=== PATIENT | male | born 1985 | race African-American/Black ===

== ENCOUNTER 2016-11-11 13:33 | Emergency (ER) | payer MEDICAID ==
[~2016-11-11] VITALS: Ht 182.9 cm; Wt 115.2 kg
[~2016-11-11 13:33] MED LIST: AMLODIPINE BESY10 MG ORAL; ANUSOL-HC25 MG RECTAL; AZITHROMYCIN250 MG ORAL; COLACE100 MG ORAL; CYCLOBENZAPRINE10 MG ORAL; IBUPROFEN600 MG ORAL; LEXAPRO10 MG PO; LEXAPRO20 MG ORAL; LISINOPRIL20 MG ORAL; MECLIZINE HCL25 MG ORAL; MEDROL DOSEPAK4 MG ORAL; MEDROL4 MG ORAL; NAPROSYN500 M1 ORAL; NORCO 5-325 TA1 EACH ORAL; NORVASC5 MG PO; PENICILLIN V P500 MG ORAL; PRILOSEC20 MG ORAL; PROMETHAZINE-D118 ML ORAL; RANITIDINE HCL150 MG ORAL; TRAMADOL HCL50 MG ORAL; VICODIN 5-5001 EACH PO; ZESTRIL20 MG PO; ZOFRAN ODT4 MG ORAL
--- NOTE | 2016-11-11 14:24 | Emergency Room Report ---
History of Present Illness General Chief Complaint: Sore Throat Source: Patient Present Illness HPI 31-year-old male presents emergency department complaining of swelling and pain in the throat since last night with difficulty talking patient denies difficulty breathing. Patient denies fevers chills recent upper respiratory illness, nasal congestion, headache, cough or purulent sputum. Patient states that he took 600 mg Motrin this a.m. which provided no relief. Patient denies recent travel or ill contacts. he denies wheezing rash or swelling of the lips or tongue. Denies CP, Palpitations, LOC, AMS, dizziness, Changes in Vision, Sensation, paresthesias, or a sudden severe headache. Allergies: Coded Allergies: No Known Allergies (Unverified , 06/28/12) Patient History Past Medical History: see triage record Past Surgical History: none Pertinent Family History: none Immunizations: UTD Reviewed Nursing Documentation: PMH: Agreed, PSxH: Agreed Nursing Documentation-PMH Hx Cardiac Problems: No - brain surgery , anxiety Hx Hypertension: Yes Hx Asthma: Yes Hx Cancer: No Hx Gastrointestinal Problems: No Hx Neurological Problems: No Review of Systems All Other Systems: negative except mentioned in HPI Physical Exam Vital Signs Date Time Temp Pulse Resp B/P Pulse Ox O2 Delivery O2 Flow Rate FiO2 11/11/16 13:51 98.1 79 15 138/88 98 Room Air Sp02 EP Interpretation: reviewed, normal General Appearance: no apparent distress, alert, GCS 15, non-toxic Head: normocephalic, atraumatic Eyes: bilateral eye PERRL, bilateral eye normal inspection ENT: hearing grossly normal, normal pharynx, no angioedema, normal voice, TMs + canals normal, uvula midline - uvular edema noted, no purulence seen, no exudate, hanging midline. Neck: full range of motion, no meningismus, no bony tend, supple/symm/no masses Respiratory: chest non-tender, lungs clear, normal breath sounds, speaking full sentences Cardiovascular #1: regular rate, rhythm, no edema Musculoskeletal: back normal, gait/station normal, normal range of motion, non- tender, no calf tenderness Neurologic: alert, oriented x3, responsive, motor strength/tone normal, sensory intact, speech normal - muffled voice. Psychiatric: judgement/insight normal, memory normal, mood/affect normal, no suicidal/homicidal ideation Skin: normal color, no rash, warm/dry, well hydrated Lymphatic: no adenopathy Medical Decision Making PA Attestation Dr. cheng is my supervising Physician whom patient management has been discussed with. Diagnostic Impression: Primary Impression: Uvular edema ER Course Pt. presents to the ED c/o : sore throat, tonsillar swelling, and nasal congestion x 2 days Ddx considered but are not limited to: pharyngitis, strep, GERMAN TEACHER, ludwigs angina, URI, Uvular edema, uvulitis Vital signs: are WNL, pt. is afebrile H&PE are most consistent with: uvular edema no indication of infection or presumed strep. no exudates, no fevers. pt. has a patent airway. ORDERS: None required at this time as the diagnosis is clinical ED INTERVENTIONS: -8MG Decadron IM -60mg Toradol IM DISCHARGE: At this time pt. is stable for d/c to home. Will provide printed patient care instructions, and any necessary prescriptions. Care plan and follow up instructions have been discussed with the patient prior to discharge. Last Vital Signs Date Time Temp Pulse Resp B/P Pulse Ox O2 Delivery O2 Flow Rate FiO2 11/11/16 13:51 98.1 79 15 138/88 98 Room Air Disposition: HOME, SELF-CARE Condition: Stable Scripts Acetaminophen* (TYLENOL EXTRA STRENGTH*) 500 Mg Tablet 500 MG ORAL Q6H, #20 TAB 0 Refills Prov: Alondra Oglesby 11/11/16 Ibuprofen* (MOTRIN*) 600 Mg Tablet 600 MG ORAL THREE TIMES A DAY, #30 TAB 0 Refills Prov: Alondra Oglesby 11/11/16 Patient Instructions: Uvulitis Additional Instructions: Take medications as directed. Follow up with PCP in 3-5 days Return sooner to ED if new symptoms occur, or current symptoms become worse. - Please note that this Emergency Department Report was dictated using [employer] processor technology software, occasionally this can lead to erroneous entry secondary to interpretation by the dictation equipment. Alondra Oglesby Nov 11, 2016 14:24
[2016-11-11] MEDS ORDERED: Ketorolac 60mg Inj IM ONE (14:30)
[2016-11-11] MEDS ORDERED: IBUPROFEN600 MG ORAL (14:31)
[2016-11-11] MEDS ORDERED: TYLENOL EXTRA500 MG ORAL (14:51)
[2016-11-11 15:04] VITALS: BP 134/86
[2016-11-11 15:05] VITALS: BP 138/88
== END 2016-11-11 15:06 | disposition home or self-care (01) ==
LOC: EMR 14:30
DX: R60.9 Edema, unspecified (principal); I10 Essential (primary) hypertension; J45.909 Unspecified asthma, uncomplicated
CPT/HCPCS: 96372; 99284

== ENCOUNTER 2016-12-15 21:23 | Emergency (ER) | payer MEDICAID ==
[~2016-12-15] VITALS: Ht 180.3 cm; Wt 158.8 kg
[~2016-12-15 21:23] MED LIST changes: +TYLENOL EXTRA500 MG ORAL
[2016-12-15 21:36] VITALS: BP 141/93
--- NOTE | 2016-12-15 21:41 | Emergency Room Report ---
History of Present Illness General Chief Complaint: Abdominal Pain Source: Patient Present Illness HPI Patient is a 31-year-old male presented for increased abdominal pain vomiting. Patient reportedly had a left-sided upper abdominal pain which was intermittent in nature. This is also some vomiting. Patient denied hematemesis or bloody stools. He reported having some increased constipation. Patient stated pain is severe nature intermittently. He denied prior abdominal surgeries. He reported having prior history of hypertension. Allergies: Coded Allergies: No Known Allergies (Unverified , 06/28/12) Patient History Past Medical History: see triage record Reviewed Nursing Documentation: PMH: Agreed, PSxH: Agreed Nursing Documentation-PMH Past Medical History: No History, Except For Hx Cardiac Problems: No - brain surgery , anxiety Hx Hypertension: Yes Hx Asthma: Yes Hx Cancer: No Hx Gastrointestinal Problems: No Hx Neurological Problems: No Review of Systems All Other Systems: negative except mentioned in HPI Physical Exam Vital Signs Date Time Temp Pulse Resp B/P Pulse Ox O2 Delivery O2 Flow Rate FiO2 12/15/16 21:27 98.4 93 16 141/93 98 Room Air Sp02 EP Interpretation: reviewed, normal General Appearance: normal inspection, well appearing, no apparent distress, alert, GCS 15, obese Head: atraumatic ENT: normal ENT inspection, hearing grossly normal, normal voice Neck: normal inspection, full range of motion, supple, no bony tend Respiratory: normal inspection, lungs clear, normal breath sounds, no respiratory distress, no retraction, no wheezing Cardiovascular #1: regular rate, rhythm, no edema Gastrointestinal: soft, no guarding, no hernia, tenderness - left upper quadrant tenderness Genitourinary: no CVA tenderness Musculoskeletal: normal inspection, back normal, normal range of motion Neurologic: normal inspection, alert, responsive, speech normal Psychiatric: normal inspection, judgement/insight normal, mood/affect normal Skin: normal inspection, normal color, no rash Medical Decision Making Diagnostic Impression: Primary Impression: Intractable abdominal pain ER Course Patient presented for abdominal pain. Differential diagnoses included ischemic bowel, appendicitis, perforated viscus, abdominal aortic aneurysm, inferior myocardial infarction, viral gastroenteritis Because of complexity of patient's case laboratory testing imaging studies were ordered.The patient was noted to have continued pain after Maalox. CT imaging. To perform was reviewed and was noted to have some inflammation of the pancreas. Laboratory testing showed normal white blood count as well as elevated alkaline phosphatase level Ultrasound of the abdomen showed some evidence of pancreatic inflammation. The patient was discussed with Dr. Reaves who accepted patient as a transfer. Labs Test 12/15/16 22:06 12/15/16 22:58 Urine Color Pale yellow Urine Appearance Clear Urine pH 6 (4.5-8.0) Urine Specific [place] 1.015 (1.005-1.035) Urine Protein Negative (NEGATIVE) Urine Glucose (UA) Negative (NEGATIVE) Urine Ketones Negative (NEGATIVE) Urine Occult Blood Negative (NEGATIVE) Urine Nitrite Negative (NEGATIVE) Urine Bilirubin Negative (NEGATIVE) Urine Urobilinogen Normal MG/DL (0.0-1.0) Urine Leukocyte Esterase Negative (NEGATIVE) Sodium Level 140 mEQ/L (135-145) Potassium Level 3.8 mEQ/L (3.4-4.9) Chloride Level 97 mEQ/L (98-107) Carbon Dioxide Level 26 mEQ/L (20-30) Anion Gap 17 (5-15) Blood Urea Nitrogen 14 mg/dL (7-23) Creatinine 1.0 mg/dL (0.7-1.2) Estimat Glomerular Filtration Rate > 60 mL/min (>60) Glucose Level 95 mg/dL (74-106) Calcium Level 9.4 mg/dL (8.6-10.2) Total Bilirubin 0.3 mg/dL (0.0-1.2) Aspartate Amino Transf (AST/SGOT) 34 U/L (5-40) Alanine Aminotransferase (ALT/SGPT) 33 U/L (3-41) Alkaline Phosphatase 191 U/L (40-129) Troponin I < 0.30 ng/mL (<=0.30) Total Protein 7.4 g/dL (6.6-8.7) Albumin 4.1 g/dL (3.5-5.2) Globulin 3.3 g/dL Albumin/Globulin Ratio 1.2 (1.0-2.7) Lipase 30 U/L (< 60) White Blood Count 6.1 K/UL (4.8-10.8) Red Blood Count 4.05 M/UL (4.70-6.10) Hemoglobin 13.7 G/DL (14.2-18.0) Hematocrit 36.8 % (42.0-52.0) Mean Corpuscular Volume 91 FL (80-99) Mean Corpuscular Hemoglobin 33.7 PG (27.0-31.0) Mean Corpuscular Hemoglobin Concent 37.1 G/DL (32.0-36.0) Red Cell Distribution Width 10.5 % (11.6-14.8) Platelet Count 171 K/UL (150-450) Mean Platelet Volume 8.8 FL (6.5-10.1) Neutrophils (%) (Auto) 50.0 % (45.0-75.0) Lymphocytes (%) (Auto) 39.7 % (20.0-45.0) Monocytes (%) (Auto) 5.7 % (1.0-10.0) Eosinophils (%) (Auto) 3.1 % (0.0-3.0) Basophils (%) (Auto) 1.5 % (0.0-2.0) Last Vital Signs Date Time Temp Pulse Resp B/P Pulse Ox O2 Delivery O2 Flow Rate FiO2 12/15/16 21:36 98.4 88 16 141/93 98 Room Air Status: unchanged Disposition: XFER SHT-TRM HOSP Condition: Serious Hilton Rodrigues Dec 15, 2016 21:41
[2016-12-15] MEDS ORDERED: Mylanta II UD 30ml ORAL ONE (21:45)
[2016-12-15 22:21] LABS: APPEARANCE,URINE CLEAR; KETONES,URINE NEGATIVE (NEGATIVE); LEUKOCYTE ESTERASE ,URINE NEGATIVE (NEGATIVE); NITRITE,URINE NEGATIVE (NEGATIVE); PH,URINE 6 (4.5-8.0); PROTEIN,URINE NEGATIVE (NEGATIVE); UROBILINOGEN,URINE NORMAL MG/DL (0.0-1.0)
[2016-12-15 22:37] LABS: TROPONIN I < 0.30 ng/mL (<=0.30)
[2016-12-15 22:39] LABS: ALANINE AMINOTRANSFERASE 33 U/L (3-41); ALBUMIN/GLOBULIN RATIO 1.2 (1.0-2.7); ANION GAP 17 (5-15); ASPARTATE AMINO TRANSFERASE 34 U/L (5-40); CALCIUM 9.4 mg/dL (8.6-10.2); CARBON DIOXIDE 26 mEQ/L (20-30); CHLORIDE 97 mEQ/L (98-107); GLOMERULAR FILTRATION RATE > 60 mL/min (>60); HEMOLYSIS 67; LIPASE 30 U/L (< 60); POTASSIUM 3.8 mEQ/L (3.4-4.9); SODIUM 140 mEQ/L (135-145); TOTAL PROTEIN 7.4 g/dL (6.6-8.7)
[2016-12-15 23:19] LABS: BASOPHILS % (AUTO) 1.5 % (0.0-2.0); EOSINOPHILS % (AUTO) 3.1 % (0.0-3.0); LYMPHOCYTES % (AUTO) 39.7 % (20.0-45.0); MEAN CORPUSCULAR HEMOGLOBIN 33.7 PG (27.0-31.0); MEAN CORPUSCULAR HGB CONC 37.1 G/DL (32.0-36.0); MEAN CORPUSCULAR VOLUME 91 FL (80-99); MEAN PLATELET VOLUME 8.8 FL (6.5-10.1); MONOCYTES % (AUTO) 5.7 % (1.0-10.0); PLATELET COUNT 171 K/UL (150-450); RED BLOOD COUNT 4.05 M/UL (4.70-6.10); RED CELL DISTRIBUTION WIDTH 10.5 % (11.6-14.8); WHITE BLOOD COUNT 6.1 K/UL (4.8-10.8)
[2016-12-15 23:40] VITALS: BP 140/80
[2016-12-16] MEDS ORDERED: Morphine Sulfate 4mg/ml Inj IVP ONE
[2016-12-16 02:03] VITALS: BP 157/90
[2016-12-16 02:13] VITALS: BP 157/90
--- NOTE | 2016-12-18 08:28 | Diagnostic Imaging Report ---
Indication:Abdominal pain Technique: Grayscale and duplex Doppler imaging of the abdomen performed. Comparison: None Findings: The liver, demonstrated part of the pancreas, aorta and IVC, both kidneys, spleen appear unremarkable. The gallbladder is contracted and not evaluated well on this examination. Sonographic Orozco's is negative. Patient is not n.p.o. CBD measures 5 mm. There is no biliary ductal dilatation identified. Doppler evaluation of the main portal vein shows patency. There is no ascites. No hydronephrosis seen. Impression: No acute findings.
--- NOTE | 2016-12-18 08:29 | Cardiology Report ---
APPROVED REPORT EKG Measurement Heart [id number] Normal sinus rhythm Nonspecific T wave abnormality Abnormal ECG
== END 2016-12-16 02:13 | disposition short-term general hospital (02) ==
LOC: EMR 21:55
DX: R10.9 Unspecified abdominal pain (principal); R11.10 Vomiting, unspecified; K59.00 Constipation, unspecified; I10 Essential (primary) hypertension; J45.909 Unspecified asthma, uncomplicated
CPT/HCPCS: 36415; 76700; 80053; 81003; 83690; 84484; 85025; 93005; 96360; 96374; 96375; 99285; J2270; J2405

== ENCOUNTER 2017-03-14 15:27 | Emergency (ER) | payer MEDICAID ==
[~2017-03-14] VITALS: Ht 182.9 cm; Wt 117.0 kg
[2017-03-14 15:52] VITALS: BP 116/80
[2017-03-14] MEDS ORDERED: Norco 7.5mg/325mg tab ORAL ONE (16:30)
--- NOTE | 2017-03-14 16:30 | Emergency Room Report ---
History of Present Illness General Chief Complaint: Pain Source: Patient Present Illness HPI 32-year-old male presents to the emergency department complaining of 10 out of 10 in severity localized right shoulder pain that had acute onset while playing the p.m. male yesterday. Patient denies previous injury. Patient reports pain with any type of movement or palpation. Patient denies numbness or weakness in the extremity. Patient denies erythema, increased temperature palpation, or swelling. Patient denies other attributable trauma or fall. Patient denies fevers, chills or rashes. Denies numbness tingling or loss of sensation or gross motor movements of the extremities, incontinence of bowel or bladder. Denies CP, Palpitations, LOC, AMS, dizziness, Changes in Vision, Sensation, paresthesias, or a sudden severe headache. Allergies: Coded Allergies: No Known Allergies (Unverified , 06/28/12) Patient History Past Medical History: see triage record Past Surgical History: none Pertinent Family History: none Immunizations: UTD Reviewed Nursing Documentation: PMH: Agreed, PSxH: Agreed Nursing Documentation-PMH Hx Cardiac Problems: Yes - "Heart surgery as " Hx Hypertension: Yes Hx Asthma: Yes Hx Cancer: No Hx Gastrointestinal Problems: No Hx Neurological Problems: Yes - "Brain surgery as a " Review of Systems All Other Systems: negative except mentioned in HPI Physical Exam Vital Signs Date Time Temp Pulse Resp B/P (MAP) Pulse Ox O2 Delivery O2 Flow Rate FiO2 03/14/17 15:37 98.8 86 16 116/80 96 Room Air Sp02 EP Interpretation: reviewed, normal General Appearance: alert, GCS 15, non-toxic, mild distress Head: normocephalic, atraumatic Eyes: bilateral eye normal inspection, bilateral eye PERRL ENT: hearing grossly normal, normal voice Neck: full range of motion Respiratory: lungs clear, normal breath sounds, speaking full sentences Cardiovascular #1: regular rate, rhythm, normal capillary refill Cardiovascular #2: 2+ radial (R), 2+ radial (L) Musculoskeletal: back normal, gait/station normal, normal range of motion - WITH PAIN, other - no motor weakness, equal circulation crew leader strength. , tender - moderate TTP to superficial palpation of the anterior and lateral right shoulder, no erythema, no bruising, no obvious deformity Neurologic: alert, oriented x3, responsive, motor strength/tone normal, sensory intact, speech normal Psychiatric: judgement/insight normal, memory normal, mood/affect normal Skin: normal color, no rash, warm/dry, well hydrated Medical Decision Making PA Attestation Dr. Burr is my supervising Physician whom patient management has been discussed with. Diagnostic Impression: Primary Impression: Shoulder pain, right Qualified Codes: M25.511 - Pain in right shoulder ER Course 32-year-old male presents to the emergency department complaining of 10 out of 10 in severity localized right shoulder pain that had acute onset while playing the p.m. male yesterday. Patient denies previous injury. Patient reports pain with any type of movement or palpation. Patient denies numbness or weakness in the extremity. Patient denies erythema, increased temperature palpation, or swelling. Patient denies other attributable trauma or fall. Patient denies fevers, chills or rashes. Denies numbness tingling or loss of sensation or gross motor movements of the extremities, incontinence of bowel or bladder. Denies CP, Palpitations, LOC, AMS, dizziness, Changes in Vision, Sensation, paresthesias, or a sudden severe headache. Ddx considered but are not limited to Fracture, dislocation, contusion, Sprain/ Strain/Spasm , arthritis, septic joint, pseudogout just to name a few Vital signs: are WNL, pt. is afebrile, non-toxic in appearance, mild distress with movement. H&PE are most consistent with musculoskeletal injury will perform imaging to r/ o fractures/dislocations. Most likely rotator cuff injury or shoulder sprain, no evidence of infection, localized inflammatory reaction, or obvious deformity. pt. is NVI, and I do not suspect a circulatory compromise, or clot. ORDERS: - X-ray Right Shoulder 3 views - negative for fx, Dislocation, or significant soft tissue injury, per preliminary read in ED by Dr. Burr - interpretation is scribed by PA. ED INTERVENTIONS: - [place] PO - Toradol IM -- Right arm Sling applied by mold maintenance technician. Pt. remains neurovascularly intact. D/w pt. that if conservative treatment does not improve his symptoms, that he may require MRI imaging and orthopedic consult. d/w pt. to follow up with PCP for these specialty referrals. D/w pt to return to ED with worsening or new symptoms promptly. I do not suspect an emergent condition at this time. with current presentation pt. is stable for close outpatient follow up. D/w pt. to return to ED with worsening or new symptoms. DISCHARGE: At this time pt. is stable for d/c to home. Will provide printed patient care instructions, and any necessary prescriptions. Care plan and follow up instructions have been discussed with the patient prior to discharge. Last Vital Signs Date Time Temp Pulse Resp B/P (MAP) Pulse Ox O2 Delivery O2 Flow Rate FiO2 03/14/17 15:52 98.8 72 16 116/80 96 Room Air Disposition: HOME, SELF-CARE Condition: Stable Referrals: [facility] [place],REFERRING (PCP) Patient Instructions: Shoulder Pain Additional Instructions: Take medications as directed. Follow up with a Primary Care Provider in 3-5 days, even if your symptoms have resolved. May require MRI if symptoms do not improve. --Please review list of primary care clinics, if you do not already have a primary care provider Return sooner to ED if new symptoms occur, or current symptoms become worse. Do not drink alcohol, drive, or operate heavy machinery while taking [ ] as this may cause drowsiness. - Please note that this Emergency Department Report was dictated using [employer] molder technology software, occasionally this can lead to erroneous entry secondary to interpretation by the dictation equipment. Alondra Oglesby Mar 14, 2017 16:30
--- NOTE | 2017-03-14 17:08 | Diagnostic Imaging Report ---
Indication: Pain Findings: 3 views of the right shoulder were obtained. No acute fractures, malalignment, erosions or periostitis are identified. Bone mineralization is within normal limits. Soft tissues are unremarkable. Impression: Negative examination of the shoulder.
[2017-03-14] MEDS ORDERED: Ketorolac 60mg Inj IM ONE (17:15)
[2017-03-14] MEDS ORDERED: TRAMADOL HCL50 MG ORAL (17:16)
[2017-03-14] MEDS ORDERED: NAPROSYN500 M1 ORAL (17:16)
[2017-03-14 17:30] VITALS: BP 139/90
[2017-03-14 17:34] VITALS: BP 139/90
== END 2017-03-14 17:34 | disposition home or self-care (01) ==
LOC: EMR 16:14
DX: M25.511 Pain in right shoulder (principal); I10 Essential (primary) hypertension; J45.909 Unspecified asthma, uncomplicated
CPT/HCPCS: 96372; 99284

== ENCOUNTER 2017-04-25 14:24 | Emergency (ER) | payer MEDICAID ==
[~2017-04-25] VITALS: Ht 182.9 cm; Wt 117.9 kg
[2017-04-25] MEDS ORDERED: IBUPROFEN600 MG ORAL (15:09)
[2017-04-25] MEDS ORDERED: AMOXICILLIN500 MG ORAL (15:09)
[2017-04-25] MEDS ORDERED: Dexamethasone 4mg/ml vial IM ONE (15:15)
[2017-04-25 15:23] VITALS: BP 137/75
--- NOTE | 2017-04-25 22:27 | Emergency Room Report ---
History of Present Illness General Chief Complaint: General Complaint Source: Patient Present Illness [facility] The patient is a 32-year-old male presenting for sore throat which began this morning. He denies any known sick contacts recent travel. Pain is a 5/10 dull ache it does not radiate. He also admits to a dry cough. Pain worse with swallowing. He denies nausea, vomiting, fever, chills, shortness of breath, rash Allergies: Coded Allergies: No Known Allergies (Unverified , 06/28/12) Patient History Past Medical History: see triage record Pertinent Family History: none Reviewed Nursing Documentation: PMH: Agreed, PSxH: Agreed Nursing Documentation-PMH Past Medical History: No History, Except For Hx Cardiac Problems: Yes - "Heart surgery as " Hx Hypertension: Yes Hx Asthma: Yes Hx COPD: No Hx Diabetes: No Hx Cancer: No Hx Gastrointestinal Problems: No Hx Dialysis: No History Of Psychiatric Problem: No Hx Neurological Problems: Yes - "Brain surgery as a " Hx Cerebrovascular Accident: No Hx Seizures: No Review of Systems All Other Systems: negative except mentioned in HPI Physical Exam Vital Signs Date Time Temp Pulse Resp B/P (MAP) Pulse Ox O2 Delivery O2 Flow Rate FiO2 04/25/17 14:37 97.5 72 16 130/99 99 Room Air Sp02 EP Interpretation: reviewed, normal General Appearance: no apparent distress, alert, GCS 15, non-toxic Head: normocephalic, atraumatic Eyes: bilateral eye normal inspection, bilateral eye PERRL ENT: normal voice, uvula midline, pharyngeal erythema, tonsillar exudate, other - uvula is erythematous with exudate Neck: full range of motion, supple/symm/no masses Respiratory: chest non-tender, lungs clear, normal breath sounds, speaking full sentences Cardiovascular #1: regular rate, rhythm, no edema Musculoskeletal: back normal, gait/station normal, normal range of motion, calf tenderness Neurologic: alert, oriented x3, responsive, motor strength/tone normal, sensory intact, speech normal Psychiatric: judgement/insight normal, memory normal, mood/affect normal, no suicidal/homicidal ideation Skin: normal color, no rash, warm/dry, well hydrated Lymphatic: adenopathy Medical Decision Making PA Attestation Dr. Tang is my supervising physician. Patient management was discussed with my supervising physician Diagnostic Impression: Primary Impression: Pharyngitis, acute Qualified Codes: J02.9 - Acute pharyngitis, unspecified ER Course The patient is a 32-year-old male presenting for sore throat Differential diagnosis include but not limited to pharyngitis, sinusitis, AOM, bronchitis, PNA Physical exam: Vitals within normal limits. Afebrile. No apparent distress HEENT exam: There is bilateral tonsillar edema, erythema, and exudate. Uvula midline. Moist mucous membranes. There is bilateral cervical lymphadenopathy. Lungs are clear to auscultation bilaterally Skin is warm and dry. No rash The patient is given antibiotics and steroids in the emergency department The patient will be discharged home with a prescription for amoxicillin and is given ER precautions. Patient will followup with primary care. Last Vital Signs Date Time Temp Pulse Resp B/P (MAP) Pulse Ox O2 Delivery O2 Flow Rate FiO2 04/25/17 15:23 76 20 137/75 99 Room Air 04/25/17 15:23 97.6 Status: improved Disposition: HOME, SELF-CARE Condition: Improved Scripts Amoxicillin* (AMOXIL*) 500 Mg Capsule 500 MG ORAL Q12HR, #20 CAP Prov: KARYN SAPP 04/25/17 Ibuprofen* (MOTRIN*) 600 Mg Tablet 600 MG ORAL Q8H Y for For Pain, #30 TAB 0 Refills Prov: KARYN SAPP 04/25/17 Referrals: [facility],REFERRING (PCP) Patient Instructions: Pharyngitis Additional Instructions: I discussed my findings with the patient. All questions and concerns have been answered. Treatment and medication compliance have been addressed. I advised the patient that they need to follow up with PMD in 3-5 days. Return to ED if pain remains or worsens, cough worsens or remains, you notice blood in your sputum, you notice wheezing, it becomes difficult to breathe, you experience a fever, or if needed for any reason. Patient verbalized understanding of discharge instructions. KRAYN SAPP Apr 25, 2017 22:27
== END 2017-04-25 15:23 | disposition home or self-care (01) ==
LOC: EMR 15:23
DX: J02.9 Acute pharyngitis, unspecified (principal); I10 Essential (primary) hypertension
CPT/HCPCS: 96372; 99284; J1100

== ENCOUNTER 2017-11-03 00:59 | Emergency (ER) | payer MEDICAID ==
[~2017-11-03] VITALS: Ht 182.9 cm; Wt 119.7 kg
[~2017-11-03 00:59] MED LIST changes: +AMOXICILLIN500 MG ORAL
--- NOTE | 2017-11-03 02:04 | Emergency Room Report ---
History of Present Illness General Chief Complaint: Lower Extremity Injury Source: Patient Present Illness HPI Is a 32-year-old male with history of attention. He presents with chief complaint of bilateral feet pain. He said he was rehearsing for play today and when he got home and walked to the kitchen he felt sharp pain to the ball of both feet. To the point that he can't bear weight. Pain is spasm and sharp. 10 out of 10. No trauma. No fever chills but no nausea no vomiting. No repetitive movement. Allergies: Coded Allergies: No Known Allergies (Unverified , 06/28/12) Patient History Past Medical History: see triage record, old chart reviewed, HTN Past Surgical History: none Pertinent Family History: none Social History: Denies: smoking Immunizations: other Reviewed Nursing Documentation: PMH: Agreed; PSxH: Agreed Nursing Documentation-PMH Past Medical History: No History, Except For Hx Cardiac Problems: Yes - "Heart surgery as " Hx Hypertension: Yes Hx Asthma: Yes Hx COPD: No Hx Diabetes: No Hx Cancer: No Hx Gastrointestinal Problems: Yes - IBS Hx Dialysis: No Hx Neurological Problems: Yes - "Brain surgery as a " Hx Cerebrovascular Accident: No Hx Seizures: No Review of Systems Eye: Denies: eye pain, blurred vision ENT: Denies: ear pain, nose congestion, throat swelling Respiratory: Denies: cough, shortness of breath Cardiovascular: Denies: chest pain, palpitations Gastrointestinal: Denies: abdominal pain, diarrhea, nausea, vomiting Musculoskeletal: Reports: joint pain; Denies: back pain Skin: Denies: rash Neurological: Denies: headache, numbness Endocrine: Denies: increased thirst, increased urine Hematologic/Lymphatic: Denies: easy bruising All Other Systems: negative except mentioned in HPI Physical Exam Vital Signs Date Time Temp Pulse Resp B/P (MAP) Pulse Ox O2 Delivery O2 Flow Rate FiO2 11/03/17 01:11 98.2 85 18 148/99 95 Room Air 98.2 vitals with high blood pressure Sp02 EP Interpretation: reviewed, normal General Appearance: well appearing, no apparent distress, alert, obese Head: normocephalic, atraumatic Eyes: bilateral eye PERRL, bilateral eye EOMI ENT: hearing grossly normal, normal pharynx Neck: full range of motion, supple, no meningismus Respiratory: chest non-tender, lungs clear, normal breath sounds Cardiovascular #1: regular rate, rhythm, no murmur Gastrointestinal: normal bowel sounds, non tender, no mass, no organomegaly, no bruit, non-distended Musculoskeletal: back normal, normal range of motion, tender - over the ball of both feet. No trauma. No redness. Neurologic: alert, oriented x3 Psychiatric: mood/affect normal Skin: warm/dry Medical Decision Making Diagnostic Impression: Primary Impression: Pain in both feet ER Course Patient with acute pain to bilateral feet over the ball. Maybe plantar fasciitis may be muscle spasm. I see no trauma. No infection. We'll discharge home. Other X-Ray Diagnostic Results Other X-Ray Diagnostic Results #1: X-Ray ordered: right foot x-rays # of Views/Limited Vs Complete: 3 View Indication: Pain EP Interpretation: Yes Interpretation: no dislocation, no soft tissue swelling, no fractures Impression: No acute disease Electronically Signed by: Devin Farr MD Other X-Ray Diagnostic Results #2: X-Ray ordered: Left foot xrays # of Views/Limited Vs Complete: 3 View Indication: Pain EP Interpretation: Yes Interpretation: no dislocation, no soft tissue swelling, no fractures Impression: No acute disease Electronically Signed by: Devin Farr MD Last Vital Signs Date Time Temp Pulse Resp B/P (MAP) Pulse Ox O2 Delivery O2 Flow Rate FiO2 11/03/17 01:11 98.2 85 18 148/99 95 Room Air 98.2 Status: improved Disposition: HOME, SELF-CARE Condition: Stable Scripts Ibuprofen* (MOTRIN*) 600 Mg Tablet 600 MG ORAL THREE TIMES A DAY, #30 TAB 0 Refills Prov: DEVIN FARR M.D. 11/03/17 Cyclobenzaprine Hcl* (FLEXERIL*) 10 Mg Tablet 10 MG ORAL TID PRN for Muscle Spasm, #21 TAB Prov: DEVIN FARR M.D. 11/03/17 Referrals: [facility],REFERRING (PCP) Additional Instructions: Ice pack area. Follow-up your doctor in 7 days. Return of worse. DEVIN FARR M.D. Nov 03, 2017 02:04
[2017-11-03] MEDS ORDERED: CYCLOBENZAPRINE10 MG ORAL (02:07)
[2017-11-03] MEDS ORDERED: IBUPROFEN600 MG ORAL (02:07)
[2017-11-03 02:25] VITALS: BP 148/99
--- NOTE | 2017-11-03 18:44 | Diagnostic Imaging Report ---
Indication: Pain Technique: XRAY Foot Complete R Comparison: No prior right foot radiographs available for comparison. Correlation made to concurrent left foot radiographs. Findings: There is no evidence of acute fracture or dislocation. Anatomic alignment and joint spaces are preserved. No focal soft tissue abnormality is appreciated. No radiopaque foreign body is seen. Impression: No evidence of acute fracture or dislocation.
--- NOTE | 2017-11-03 18:44 | Diagnostic Imaging Report ---
Indication: Pain Technique: XRAY Foot Complete L Comparison: 06/28/2012 Findings: There is no evidence of acute fracture or dislocation. Anatomic alignment and joint spaces are preserved. No focal soft tissue abnormality is appreciated. No radiopaque foreign body is seen. Impression: No evidence of acute fracture or dislocation.
== END 2017-11-03 02:25 | disposition home or self-care (01) ==
LOC: EMR 01:15
DX: M79.672 Pain in left foot (principal); M79.671 Pain in right foot; I10 Essential (primary) hypertension; J45.909 Unspecified asthma, uncomplicated
CPT/HCPCS: 99284

== ENCOUNTER 2018-01-04 09:40 | Emergency (ER) | payer MEDICAID ==
[~2018-01-04] VITALS: Ht 182.9 cm; Wt 122.0 kg
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
[2018-01-04 10:32] VITALS: BP 153/93
[2018-01-04] MEDS ORDERED: ATHLETIC FOOT C30 GM TOPIC (11:40)
[2018-01-04 12:15] VITALS: BP 151/98
[2018-01-04 12:16] VITALS: BP 151/98
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
== END 2018-01-04 12:15 | disposition home or self-care (01) ==
LOC: EMR 10:49
DX: S20.219A Contusion of unspecified front wall of thorax, initial encounter (principal); W51.XXXA Accidental striking against or bumped into by another person, initial encounter; Y92.9 Unspecified place or not applicable; B35.3 Tinea pedis; I10 Essential (primary) hypertension; J45.909 Unspecified asthma, uncomplicated
CPT/HCPCS: 99283

== ENCOUNTER 2018-01-29 16:36 | Emergency (ER) | payer MEDICAID ==
[~2018-01-29] VITALS: Ht 182.9 cm; Wt 120.2 kg
[~2018-01-29 16:36] MED LIST changes: +ATHLETIC FOOT C30 GM TOPIC
[2018-01-29 17:03] VITALS: BP 159/106
[2018-01-29] MEDS ORDERED: Norco 5mg/325mg tab ORAL ONE ×2 (17:15→18:15)
--- NOTE | 2018-01-29 17:44 | Diagnostic Imaging Report ---
Indications: Headache Technique: Spiral acquisitions obtained through the brain. Angled axial and coronal 5 x 5 mm slices were reconstructed. Total dose length product 1439.42 mGycm. CTDI vol(s) 70.38 mGy. Dose reduction achieved using automated exposure control Comparison: 10/02/2013 Findings: Possible small area of encephalomalacia or other cystic focus versus physiologic asymmetry of the lateral ventricle again demonstrated in the region of the right caudate nucleus, unchanged. No evidence of acute intrarenal hemorrhage or edema, mass effect, nor midline shift. Normal malloy-white differentiation. Intact calvarium. Visualized orbits and sinuses are unremarkable. Impression: Findings as noted. Negative for acute intracranial bleed or mass effect The CT scanner at [facility] is accredited by the [employer] and the scans are performed using protocols designed to limit radiation exposure to as low as reasonably achievable to attain images of sufficient resolution adequate for diagnostic evaluation.
[2018-01-29] MEDS ORDERED: Hydrogen Peroxide 473ml Bottle TOPIC ONE ×2 (18:11→18:15)
--- NOTE | 2018-01-29 18:13 | Emergency Room Report ---
History of Present Illness General Chief Complaint: Headache Source: Patient Present Illness HPI 32-year-old male presents with 2-3 days of intermittent left frontal headache with 2 episodes of vomiting yesterday. No associated fever, chills, neck pain or stiffness. No history of chronic headaches, migraines. Patient also complaining of left ear ringing and left ear pain since last night. He intermittently uses Q-tips to clean his ears but denies any recent Q-tip use or severe pain after using Q-tip. Denies throat pain or difficulty swallowing. Denies sick contacts. Took 1 dose of ibuprofen last night with only mild improvement in pain. Allergies: Coded Allergies: No Known Allergies (Unverified , 06/28/12) Patient History Past Medical History: none Past Surgical History: none Pertinent Family History: none Social History: Denies: smoking, alcohol use, drug use Immunizations: UTD Reviewed Nursing Documentation: PMH: Agreed; PSxH: Agreed Nursing Documentation-PMH Past Medical History: No History, Except For Hx Cardiac Problems: Yes - "Heart surgery as " Hx Hypertension: Yes Hx Asthma: Yes Hx COPD: No Hx Diabetes: No Hx Cancer: No Hx Gastrointestinal Problems: Yes - IBS Hx Dialysis: No Hx Neurological Problems: Yes - "Brain surgery as a " Hx Cerebrovascular Accident: No Hx Seizures: No Review of Systems All Other Systems: negative except mentioned in HPI Physical Exam Vital Signs Date Time Temp Pulse Resp B/P (MAP) Pulse Ox O2 Delivery O2 Flow Rate FiO2 01/29/18 16:52 98.5 81 18 159/106 98 Room Air 98.4 Sp02 EP Interpretation: reviewed, normal General Appearance: normal inspection, well appearing, no apparent distress, alert, GCS 15, non-toxic Head: normocephalic, atraumatic Eyes: bilateral eye PERRL, bilateral eye EOMI ENT: normal ENT inspection, hearing grossly normal, normal pharynx, no angioedema, normal voice, uvula midline, moist mucus membranes, other - Left TM with erythema in canal. No TM erythema. Large piece of wax removed with irrigation Neck: normal inspection, full range of motion, supple, thyroid normal, no meningismus, no bony tend Respiratory: normal inspection, lungs clear, normal breath sounds, no rhonchi, no respiratory distress, no retraction, no accessory muscle use, no wheezing, speaking full sentences Cardiovascular #1: regular rate, rhythm, no edema, no JVD, normal capillary refill Gastrointestinal: normal inspection, normal bowel sounds, non tender, soft, no mass, no peritonitis, non-distended, no guarding, no hernia, no pulsatile mass Genitourinary: no CVA tenderness Musculoskeletal: normal inspection, back normal, normal range of motion, no calf tenderness, pelvis stable, Efra's Sign negative Neurologic: normal inspection, alert, oriented x3, responsive, supervisor dental laboratory III-XII nml as tested, motor strength/tone normal, cerebellar normal, normal gait, speech normal Psychiatric: normal inspection, judgement/insight normal, mood/affect normal, no suicidal/homicidal ideation, no delusions Skin: normal inspection, normal color, no rash Lymphatic: normal inspection, no adenopathy Medical Decision Making Diagnostic Impression: Primary Impression: Headache Qualified Codes: R51 - Headache Additional Impressions: Left ear pain Left otitis media Qualified Codes: H66.92 - Otitis media, unspecified, left ear ER Course VSS, afebrile Patient is well-appearing, nonseptic appearing patient has a low suspicion for meningitis or for acute or other serious bacterial or surgical process that would require Additional laboratory analysis at this time Patient texting on phone sitting upright in stretcher. He is very pleasant, calm, cooperative and interactive. CT head shows possible small area of encephalomalacia or physiologic asymmetry of lateral ventricle "again demonstrated" based on review of prior CT head Patient states he has had MRI but not sure if it was MRI of head He is not sure if he seen neurologist We'll treat for otitis with antibiotics Advised to not use Q-tips in the future I contacted Dr. Ramsey, [facility] to arrange outpatient MRI DC home Last Vital Signs Date Time Temp Pulse Resp B/P (MAP) Pulse Ox O2 Delivery O2 Flow Rate FiO2 01/29/18 17:16 98.5 01/29/18 17:03 78 18 159/106 100 Room Air Status: improved Disposition: HOME, SELF-CARE AURELIA COWART M.D. Jan 29, 2018 18:13
[2018-01-29] MEDS ORDERED: IBUPROFEN600 MG ORAL (18:50)
[2018-01-29] MEDS ORDERED: AUGMENTIN 875-1 EAC1 ORAL (18:50)
[2018-01-29 18:55] VITALS: BP 148/98
== END 2018-01-29 18:55 | disposition home or self-care (01) ==
LOC: EMR 17:25
DX: R51 Headache (principal); H66.92 Otitis media, unspecified, left ear; I10 Essential (primary) hypertension; J45.909 Unspecified asthma, uncomplicated; K58.9 Irritable bowel syndrome, unspecified
CPT/HCPCS: 70450; 99284

== ENCOUNTER 2018-07-02 07:29 | Emergency (ER) | payer MEDICAID ==
[~2018-07-02] VITALS: Ht 182.9 cm; Wt 120.7 kg
[~2018-07-02 07:29] MED LIST changes: +AUGMENTIN 875-1 EAC1 ORAL
[2018-07-02] MEDS ORDERED: Albuterol ud Inhalation HHN ONE (08:00)
--- NOTE | 2018-07-02 08:58 | Emergency Room Report ---
History of Present Illness General Chief Complaint: Flu Like Symptoms Source: Patient Present Illness HPI This patient states he's had 2 weeks of cough and congestion. He states his symptoms are worsening and not improving. He does have a history of asthma and states he has been using his inhaler. However, he continues to have cough and shortness of breath. He also has had intermittent fever. He denies chest pain or abdominal pain. He states that he has had thick green sputum production. He states that he did not get the flu shot this season. He has no other complaints. Allergies: Coded Allergies: No Known Allergies (Unverified , 06/28/12) Patient History Past Medical History: see triage record, HTN, asthma Past Surgical History: other - Hx of "heart" and "brain" surgery as a , Autism Social History: Denies: smoking, alcohol use, drug use Reviewed Nursing Documentation: PMH: Agreed; PSxH: Agreed Nursing Documentation-PMH Past Medical History: No History, Except For Hx Cardiac Problems: Yes - "Heart surgery as " Hx Hypertension: Yes Hx Asthma: Yes Hx COPD: No Hx Diabetes: No Hx Cancer: No Hx Gastrointestinal Problems: Yes - IBS Hx Dialysis: No Hx Neurological Problems: Yes - "Brain surgery as a " Hx Cerebrovascular Accident: No Hx Seizures: No Review of Systems All Other Systems: negative except mentioned in HPI Physical Exam Vital Signs Date Time Temp Pulse Resp B/P (MAP) Pulse Ox O2 Delivery O2 Flow Rate FiO2 07/02/18 07:50 98.8 90 18 154/100 98 Room Air Sp02 EP Interpretation: reviewed, normal General Appearance: no apparent distress, alert, GCS 15, non-toxic Head: normocephalic, atraumatic Eyes: bilateral eye normal inspection, bilateral eye PERRL ENT: hearing grossly normal, normal pharynx, no angioedema, normal voice Neck: full range of motion, supple/symm/no masses Respiratory: chest non-tender, no respiratory distress, no retraction, no accessory muscle use, rhonchi, speaking full sentences, wheezing Cardiovascular #1: regular rate, rhythm, no edema Gastrointestinal: normal bowel sounds, non tender, soft, non-distended, no guarding, no rebound Rectal: deferred Musculoskeletal: back normal, gait/station normal, normal range of motion, non- tender Neurologic: alert, oriented x3, responsive, motor strength/tone normal, sensory intact, speech normal Psychiatric: judgement/insight normal, memory normal, mood/affect normal, no suicidal/homicidal ideation Skin: normal color, no rash, warm/dry, well hydrated Medical Decision Making Diagnostic Impression: Primary Impression: Asthma exacerbation Additional Impression: Acute bronchitis ER Course This patient has a clinical presentation consistent with asthma exacerbation. Patient has a history of asthma and has wheezing and rhonchi on physical exam. The patient was given albuterol nebulizer treatments. The patient was also given prednisone orally. The patient had significant improvement in subjective shortness of breath. The patient's lung exam improved significantly. I will also treat the patient with a course of antibiotics as this has been shown to improve the course of an asthma exacerbation. The patient was given close return precautions and followup instructions. Chest X-Ray Diagnostic Results Chest X-Ray Diagnostic Results : Chest X-Ray Ordered: Yes # of Views/Limited/Complete: 1 View Indication: Other - cough EP Interpretation: Yes Interpretation: no consolidation, no effusion, no pneumothorax, no acute cardiopulmonary disease Impression: No acute disease Electronically Signed by: Elsie Gifford DO Last Vital Signs Date Time Temp Pulse Resp B/P (MAP) Pulse Ox O2 Delivery O2 Flow Rate FiO2 07/02/18 08:00 90 18 Room Air 07/02/18 07:50 98.8 154/100 98 Status: improved Disposition: HOME, SELF-CARE Condition: Improved Referrals: NON PHYSICIAN (PCP) Elsie Gifford DO Jul 02, 2018 08:58
[2018-07-02] MEDS ORDERED: ZITHROMAX250 MG ORAL (09:00)
[2018-07-02] MEDS ORDERED: PREDNISONE20 MG ORAL (09:00)
[2018-07-02 09:10] VITALS: BP 149/98
--- NOTE | 2018-07-02 09:30 | Diagnostic Imaging Report ---
Indication: Cough, history of asthma, shortness of breath Technique: One view of the chest Comparison: 05/19/2015 Findings: Lungs and pleural spaces are clear. Heart size is normal. Ductus clip again demonstrated. No significant change Impression: No acute process
== END 2018-07-02 09:10 | disposition home or self-care (01) ==
LOC: EMR 08:15
DX: J45.901 Unspecified asthma with (acute) exacerbation (principal); J20.9 Acute bronchitis, unspecified; I10 Essential (primary) hypertension
CPT/HCPCS: 71045; 86710; 94640; 99284; J7512

== ENCOUNTER 2018-09-25 22:05 | Emergency (ER) | payer MEDICAID ==
[~2018-09-25] VITALS: Ht 182.9 cm; Wt 120.2 kg
[~2018-09-25 22:05] MED LIST changes: +PREDNISONE20 MG ORAL; +ZITHROMAX250 MG ORAL
[2018-09-25] MEDS ORDERED: Aspirin Baby 81mg ORAL ONE (22:45)
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
[2018-09-25] MEDS ORDERED: Albuterol/Ipratropium 3ml neb HHN ONE (23:15)
--- NOTE | 2018-09-25 23:36 | Emergency Room Report ---
History of Present Illness General Chief Complaint: Chest Pain Source: Patient Present Illness HPI Is a 31-year-old male presented for intermittent chest tightness. Patient had onset of symptoms earlier in the day. Patient had prior history of asthma. As well as hypertension. Recently started a new antihypertensive.The onset of symptoms at rest. He denies any increased cough. He denies any increased difficulty breathing. He had prior history of hypertension is followed by Dr. Ramsey. Allergies: Coded Allergies: No Known Allergies (Unverified , 06/28/12) Patient History Reviewed Nursing Documentation: PMH: Agreed; PSxH: Agreed Nursing Documentation-PMH Past Medical History: No History, Except For Hx Cardiac Problems: Yes - "Heart surgery as " Hx Hypertension: Yes Hx Asthma: Yes Hx COPD: No Hx Diabetes: No Hx Cancer: No Hx Gastrointestinal Problems: Yes - IBS Hx Dialysis: No Hx Neurological Problems: Yes - "Brain surgery as a " Hx Cerebrovascular Accident: No Hx Seizures: No Review of Systems All Other Systems: negative except mentioned in HPI Physical Exam Vital Signs Date Time Temp Pulse Resp B/P (MAP) Pulse Ox O2 Delivery O2 Flow Rate FiO2 09/25/18 22:18 98.2 92 18 147/97 97 Room Air 09/25/18 23:34 21 Sp02 EP Interpretation: reviewed, normal General Appearance: normal inspection, well appearing, no apparent distress, alert, GCS 15, non-toxic Head: atraumatic ENT: normal ENT inspection, hearing grossly normal, normal voice Neck: normal inspection, full range of motion, supple, no bony tend Respiratory: normal inspection, lungs clear, normal breath sounds, no respiratory distress, no retraction, no wheezing Cardiovascular #1: regular rate, rhythm, no edema Gastrointestinal: normal inspection, normal bowel sounds, non tender, soft, no guarding, no hernia Genitourinary: no CVA tenderness Musculoskeletal: normal inspection, back normal, normal range of motion Neurologic: normal inspection, alert, responsive, speech normal Psychiatric: normal inspection, judgement/insight normal, mood/affect normal Skin: normal inspection, normal color, no rash Medical Decision Making Diagnostic Impression: Primary Impression: Asthma exacerbation ER Course Patient presented for shortness of breath. Differential diagnosis includes is not limited to asthma exacerbation, influenza, pneumonia, pulmonary embolism, myocardial infarction among others. EKG interpreted by me showed normal sinus rhythm without acute ST or T wave changes. Chest x-ray 1 view read by radiology showed no evidence of pleural effusion, pneumothorax or infiltrate. Patient was noted to have what appears to be an asthma exacerbation. Patient was given steroids as well as breathing treatments with improvement. The patient is advised to follow up with primary care doctor in 1-2 days. Patient is advised to return if any worsening condition or if any changes in status that are concerning. This report is dictated with [employer] bulk picker software which may occasionally lead to discrepancies related to use of this software. EKG Diagnostic Results Rate: normal Rhythm: NSR ST Segments: no acute changes Last Vital Signs Date Time Temp Pulse Resp B/P (MAP) Pulse Ox O2 Delivery O2 Flow Rate FiO2 09/25/18 23:34 67 14 Room Air 21 09/25/18 22:18 98.2 147/97 97 Status: improved Disposition: HOME, SELF-CARE Condition: Stable Hilton Rodrigues MD Sep 25, 2018 23:36
[2018-09-25 23:44] LABS: BASOPHILS % (AUTO) 1.5 % (0.0-2.0); HEMATOCRIT 43.2 % (42.0-52.0); LYMPHOCYTES % (AUTO) 34.6 % (20.0-45.0); MEAN CORPUSCULAR VOLUME 90 FL (80-99); MONOCYTES % (AUTO) 5.5 % (1.0-10.0); NEUTROPHILS % (AUTO) 54.4 % (45.0-75.0); PLATELET COUNT 208 K/UL (150-450); RED BLOOD COUNT 4.78 M/UL (4.70-6.10); RED CELL DISTRIBUTION WIDTH 10.9 % (11.6-14.8); WHITE BLOOD COUNT 6.2 K/UL (4.8-10.8)
[2018-09-25 23:57] LABS: ANION GAP 9 mmol/L (5-15); BLOOD UREA NITROGEN 8 mg/dL (7-18); CALCIUM 9.2 MG/DL (8.5-10.1); CARBON DIOXIDE 30 MMOL/L (21-32); CHLORIDE 103 MMOL/L (98-107); CREATININE 0.9 MG/DL (0.55-1.30); POTASSIUM 3.4 MMOL/L (3.5-5.1); SODIUM 142 MMOL/L (136-145)
[2018-09-26] VITALS: BP 133/83
[2018-09-26 00:11] LABS: ALANINE AMINOTRANSFERASE 48 U/L (12-78); ALBUMIN 3.8 G/DL (3.4-5.0); ALKALINE PHOSPHATASE 146 U/L (46-116); ASPARTATE AMINO TRANSFERASE 43 U/L (15-37); BILIRUBIN,TOTAL 0.7 MG/DL (0.2-1.0); CKMB 1.8 NG/ML (0.0-3.6); CREATINE KINASE 299 U/L (26-308)
[2018-09-26 03:40] VITALS: BP 133/83
--- NOTE | 2018-09-26 03:40 | NUR ---
ED Nurse Note: PREVIOUS CHARTING ON PAPER CHART, COMPUTER ON DOWNTIME, PT IS BEING D/C TO HOME, AWAKE, ALERT AND ORIENTED X 4, AMBULATORY WITH STEADY GAIT, CHEST PAIN AT 2/10, IV SITE AND ARMBAND REMOVED WITHOUT COMPLICATIONS, PT WITH MOTHER TO DRIVE, BOTH PARTIES GIVEN F/U INFO, AFTER CARE INSTRUCTIONS AND PRESCRIPTION, GIVEN BY AIRAM NUR WHOM DISCHARGED PT.
--- NOTE | 2018-09-27 09:32 | Diagnostic Imaging Report ---
Indication: Shortness of breath Technique: One view of the chest Comparison: none Findings: Lungs and pleural spaces are clear. Surgical clip, presumably a ductus clip, again noted. The heart size is normal Impression: No acute process
== END 2018-09-26 03:40 | disposition home or self-care (01) ==
LOC: EMR 22:59
DX: R07.89 Other chest pain (principal); I10 Essential (primary) hypertension; J45.901 Unspecified asthma with (acute) exacerbation; K58.9 Irritable bowel syndrome, unspecified
CPT/HCPCS: 36415; 71045; 80053; 80307; 82550; 82553; 83690; 83880; 84484; 85025; 85610; 85730; 93005; 94640; 94664; 99284; J7620

== ENCOUNTER 2018-11-26 07:25 | Emergency (ER) | payer MEDICAID ==
[~2018-11-26] VITALS: Ht 182.9 cm; Wt 113.4 kg
[2018-11-26] MEDS ORDERED: LEXAPRO20 MG ORAL (07:46)
[2018-11-26 08:00] VITALS: BP 158/96
--- NOTE | 2018-11-26 08:03 | NUR ---
ED Nurse Note: pt presents from home c/o left lat abd pain since yest with nausea. last bm today. no vomiting. pt relates unable to boid at this time. md toro of pt.
[2018-11-26] MEDS ORDERED: Ketorolac 30mg Inj IV ONE (08:15)
--- NOTE | 2018-11-26 08:30 | NUR ---
ED Nurse Note: tolerates iv/labs well aware to obtain urine sample. urinal given. pt stes immediate relief of symptoms after meds given
--- NOTE | 2018-11-26 08:40 | Emergency Room Report ---
History of Present Illness General Chief Complaint: Abdominal Pain Source: Patient Present Illness HPI Patient presents emergency department today complaint left upper quadrant abdominal pain. Patient states that he has had left upper quadrant abdominal pain for the last couple of days. He had a similar episode years ago which resolved he does not remember what happened then and he is uncertain if this is similar. He complains of nausea but no vomiting. States he does feel constipated but he had a bowel movement yesterday. No other complaints are noted. Symptoms noted to moderate to severe. Patient denies any dysuria urinary frequency. No other modifying factors. No other associated signs and symptoms. No other complaints were noted. Allergies: Coded Allergies: No Known Allergies (Unverified , 11/26/18) Patient History Past Medical History: none Past Surgical History: none Pertinent Family History: none Social History: Denies: smoking, alcohol use, drug use Reviewed Nursing Documentation: PMH: Agreed; PSxH: Agreed Nursing Documentation-PMH Hx Cardiac Problems: Yes - "Heart surgery as " Hx Hypertension: Yes Hx Asthma: Yes Hx COPD: No Hx Diabetes: No Hx Cancer: No Hx Gastrointestinal Problems: Yes - IBS Hx Dialysis: No Hx Neurological Problems: Yes - "Brain surgery as a " Hx Cerebrovascular Accident: No Hx Seizures: No Review of Systems All Other Systems: negative except mentioned in HPI Physical Exam Vital Signs Date Time Temp Pulse Resp B/P (MAP) Pulse Ox O2 Delivery O2 Flow Rate FiO2 11/26/18 07:42 98.8 74 16 97 Room Air 11/26/18 08:00 158/96 Sp02 EP Interpretation: reviewed, normal General Appearance: normal inspection, well appearing, no apparent distress, alert Head: atraumatic Eyes: bilateral eye normal inspection ENT: normal ENT inspection, hearing grossly normal, normal voice Neck: normal inspection, full range of motion, supple, no bony tend Respiratory: normal inspection, lungs clear, normal breath sounds, no respiratory distress, no retraction, no wheezing Cardiovascular #1: regular rate, rhythm, no edema Gastrointestinal: normal inspection, normal bowel sounds, soft, no guarding, no hernia, tenderness - Left upper quadrant Genitourinary: no CVA tenderness Musculoskeletal: normal inspection, back normal, normal range of motion Neurologic: normal inspection, alert, responsive, speech normal Psychiatric: normal inspection, judgement/insight normal, mood/affect normal Skin: normal inspection, normal color, no rash Medical Decision Making Diagnostic Impression: Primary Impression: Kidney stone on left side Additional Impression: Abdominal pain ER Course Patient presents emergency department today complaining of abdominal pain. Differential considerations include colitis, pancreatitis, gastritis, kidney stone, urinary tract infection just to name a few. Given the severity of the patient's presentation I felt this is a highly complex patient. This patient required extensive workup. Patient's laboratory work-up was not impressive. However given severe pain CT scan was obtained. CT scan shows evidence of 4 mm kidney stone in the left side. Patient was given pain medications with significant improvement. Given patient's feeling better I feel the patient can be discharged home. Patient was given a prescription for Motrin Zenia and Flomax. Patient is advised to follow up with primary doctor in 2-3 days and return the emergency room for any worsening symptoms and as needed. Advised to follow-up with urology. Labs Test 11/26/18 08:25 11/26/18 09:10 White Blood Count 6.3 K/UL (4.8-10.8) Red Blood Count 4.44 M/UL (4.70-6.10) Hemoglobin 14.0 G/DL (14.2-18.0) Hematocrit 39.8 % (42.0-52.0) Mean Corpuscular Volume 90 FL (80-99) Mean Corpuscular Hemoglobin 31.6 PG (27.0-31.0) Mean Corpuscular Hemoglobin Concent 35.1 G/DL (32.0-36.0) Red Cell Distribution Width 10.8 % (11.6-14.8) Platelet Count 200 K/UL (150-450) Mean Platelet Volume 8.9 FL (6.5-10.1) Neutrophils (%) (Auto) 47.7 % (45.0-75.0) Lymphocytes (%) (Auto) 38.7 % (20.0-45.0) Monocytes (%) (Auto) 4.9 % (1.0-10.0) Eosinophils (%) (Auto) 7.0 % (0.0-3.0) Basophils (%) (Auto) 1.7 % (0.0-2.0) Sodium Level 143 MMOL/L (136-145) Potassium Level 3.4 MMOL/L (3.5-5.1) Chloride Level 105 MMOL/L (98-107) Carbon Dioxide Level 28 MMOL/L (21-32) Anion Gap 10 mmol/L (5-15) Blood Urea Nitrogen 11 mg/dL (7-18) Creatinine 1.0 MG/DL (0.55-1.30) Estimat Glomerular Filtration Rate > 60 mL/min (>60) Glucose Level 128 MG/DL (74-106) Calcium Level 8.8 MG/DL (8.5-10.1) Total Bilirubin 0.5 MG/DL (0.2-1.0) Aspartate Amino Transf (AST/SGOT) 32 U/L (15-37) Alanine Aminotransferase (ALT/SGPT) 39 U/L (12-78) Alkaline Phosphatase 179 U/L (46-116) Total Protein 6.8 G/DL (6.4-8.2) Albumin 3.4 G/DL (3.4-5.0) Globulin 3.4 g/dL Albumin/Globulin Ratio 1.0 (1.0-2.7) Lipase 141 U/L (73-393) Urine Color Pale yellow Urine Appearance Clear Urine pH 6.5 (4.5-8.0) Urine Specific [place] 1.010 (1.005-1.035) Urine Protein Negative (NEGATIVE) Urine Glucose (UA) Negative (NEGATIVE) Urine Ketones Negative (NEGATIVE) Urine Blood 3+ (NEGATIVE) Urine Nitrite Negative (NEGATIVE) Urine Bilirubin Negative (NEGATIVE) Urine Urobilinogen Normal MG/DL (0.0-1.0) Urine Leukocyte Esterase Negative (NEGATIVE) Urine RBC 5-10 /HPF (0 - 0) Urine WBC 0 /HPF (0 - 0) Urine Squamous Epithelial Cells Occasional /LPF Urine Bacteria Occasional /HPF (NONE) CT/MRI/US Diagnostic Results CT/MRI/US Diagnostic Results : Imaging Test Ordered: CT abdomen pelvis: Left-sided kidney stone Last Vital Signs Date Time Temp Pulse Resp B/P (MAP) Pulse Ox O2 Delivery O2 Flow Rate FiO2 11/26/18 08:00 98.8 74 16 158/96 97 Room Air Status: improved Disposition: HOME, SELF-CARE Condition: Stable Scripts Tamsulosin HCl (Flomax) 0.4 Mg Cap.er.24h 0.4 MG ORAL DAILY for 10 Days, CAP Prov: Shankar Chanel MD 11/26/18 Hydrocodone Bit/Acetaminophen 5-325* (NORCO 5-325*) 1 Each Tablet 1 TAB ORAL Q6H PRN for For Pain, #20 TAB 0 Refills Prov: Shankar Chanel MD 11/26/18 Ibuprofen* (MOTRIN*) 600 Mg Tablet 600 MG ORAL FOUR TIMES A DAY, #20 TAB 0 Refills Prov: Shankar Chanel MD 11/26/18 Referrals: NON PHYSICIAN (PCP) Shankar Chanel MD November 26, 2018 08:40
[2018-11-26 08:45] LABS: BASOPHILS % (AUTO) 1.7 % (0.0-2.0); HEMATOCRIT 39.8 % (42.0-52.0); LYMPHOCYTES % (AUTO) 38.7 % (20.0-45.0); MEAN CORPUSCULAR VOLUME 90 FL (80-99); MONOCYTES % (AUTO) 4.9 % (1.0-10.0); NEUTROPHILS % (AUTO) 47.7 % (45.0-75.0); PLATELET COUNT 200 K/UL (150-450); RED BLOOD COUNT 4.44 M/UL (4.70-6.10); RED CELL DISTRIBUTION WIDTH 10.8 % (11.6-14.8); WHITE BLOOD COUNT 6.3 K/UL (4.8-10.8)
[2018-11-26 08:59] LABS: ANION GAP 10 mmol/L (5-15); BLOOD UREA NITROGEN 11 mg/dL (7-18); CALCIUM 8.8 MG/DL (8.5-10.1); CARBON DIOXIDE 28 MMOL/L (21-32); CHLORIDE 105 MMOL/L (98-107); POTASSIUM 3.4 MMOL/L (3.5-5.1); SODIUM 143 MMOL/L (136-145)
[2018-11-26 09:04] LABS: ALANINE AMINOTRANSFERASE 39 U/L (12-78); ALBUMIN 3.4 G/DL (3.4-5.0); ALKALINE PHOSPHATASE 179 U/L (46-116); ASPARTATE AMINO TRANSFERASE 32 U/L (15-37); BILIRUBIN,TOTAL 0.5 MG/DL (0.2-1.0)
[2018-11-26 09:30] LABS: APPEARANCE,URINE CLEAR; BILIRUBIN, URINE NEGATIVE (NEGATIVE); COLOR,URINE PALE YELLOW; GLUCOSE, URINE (UA) NEGATIVE (NEGATIVE); KETONES,URINE NEGATIVE (NEGATIVE); LEUKOCYTE ESTERASE ,URINE NEGATIVE (NEGATIVE); NITRITE,URINE NEGATIVE (NEGATIVE); PH,URINE 6.5 (4.5-8.0); PROTEIN,URINE NEGATIVE (NEGATIVE); UROBILINOGEN,URINE NORMAL MG/DL (0.0-1.0)
--- NOTE | 2018-11-26 09:33 | NUR ---
ED Nurse Note: pt back from ct scan urine sent as ordered. denies increased c/o. ivf infusing well.
--- NOTE | 2018-11-26 09:59 | Diagnostic Imaging Report ---
Indication: Abdominal pain Technique: Continuous helical transaxial imaging of the abdomen and pelvis was obtained from the lung bases to the pubic symphysis. No intravenous contrast was administered. Coronal 2-D reformats were also obtained. Automatic Exposure Control was utilized. Total Dose length Product (DLP): 1002.[address] Dose Index Volume (CTDIvol): 18.84 mGy Comparison: 11/08/2015 Findings: Small nodular density partially demonstrated on this study at the right lung base could be fissural or parenchymal and was probably present on the prior occasion but this is not for certain. There is a 4 mm stone in the left UPJ associated with minimal amount of a soft tissue stranding surrounding the minimally distended left renal pelvis. There are no stones otherwise. The remainder of the ureter is normal in caliber. The appendix is normal. The gallbladder is contracted. There is a nonspecific obstructive bowel gas pattern noted. There is no free fluid. The bladder is unremarkable. Small nodes are seen in the retroperitoneum. IMPRESSION: 4 mm stone left UPJ with minimal hydronephrosis. 6 normal appendix Partially imaged tiny nodular density at the right lung base. Suggest follow-up. The CT scanner at [facility] is accredited by the [employer] and the scans are performed using dose optimization techniques as appropriate to a performed exam including Automatic Exposure control.
[2018-11-26] MEDS ORDERED: NORCO 5-325 TA1 EACH ORAL (10:22)
[2018-11-26] MEDS ORDERED: IBUPROFEN600 MG ORAL (10:22)
[2018-11-26] MEDS ORDERED: FLOMAX0.4 MG ORAL (10:22)
--- NOTE | 2018-11-26 10:26 | NUR ---
ED Nurse Note: pt reeval by pt without n/v upon dc.
--- NOTE | 2018-11-26 10:31 | NUR ---
ER DISCHARGE NOTE: Patient is cleared to be discharged per ERMD, pt is aox4, on room air, with stable vital signs. pt was given dc and prescription instructions, pt was able to verbalize understanding, pt id band and iv site removed without complications. pt is able to ambulate with steady gait. pt took all belongings. pt aware to f/u with pmd. stTes pain decreased
[2018-11-26 10:32] VITALS: BP 160/92
== END 2018-11-26 10:33 | disposition home or self-care (01) ==
LOC: EMR 07:42
DX: N20.0 Calculus of kidney (principal); R10.9 Unspecified abdominal pain; I10 Essential (primary) hypertension; K58.9 Irritable bowel syndrome, unspecified
CPT/HCPCS: 36415; 74176; 80053; 81003; 83690; 85025; 96361; 96374; 96375; 99284; J1885; J2405

== ENCOUNTER 2018-12-19 22:07 | Emergency (ER) | payer MEDICAID ==
[~2018-12-19] VITALS: Ht 182.9 cm; Wt 113.4 kg
[~2018-12-19 22:07] MED LIST changes: +FLOMAX0.4 MG ORAL
[2018-12-19 22:33] VITALS: BP 144/106
--- NOTE | 2018-12-19 22:42 | Emergency Room Report ---
History of Present Illness General Chief Complaint: Pain Source: Patient, Medical Record Present Illness HPI Is a 33-year-old male who was here about 3 weeks ago and diagnosed with left ureteral stone. He said he didn't think he passed it. Pain was controllable until today when he get more severe. Seemed to be moving. Pain is left flank. 9 out of 10. Worse with urination. No blood. No nausea no vomiting. He still waiting for referral to see urologist. Allergies: Coded Allergies: No Known Allergies (Unverified , 11/26/18) Patient History Past Medical History: see triage record, old chart reviewed, HTN Past Surgical History: other Pertinent Family History: none Social History: Denies: smoking Immunizations: other Reviewed Nursing Documentation: PMH: Agreed; PSxH: Agreed Nursing Documentation-PMH Hx Cardiac Problems: Yes - "Heart surgery as " Hx Hypertension: Yes Hx Asthma: Yes Hx COPD: No Hx Diabetes: No Hx Cancer: No Hx Gastrointestinal Problems: Yes - IBS Hx Dialysis: No Hx Neurological Problems: Yes - "Brain surgery as a " Hx Cerebrovascular Accident: No Hx Seizures: No Review of Systems Eye: Denies: eye pain, blurred vision ENT: Denies: ear pain, nose congestion, throat swelling Respiratory: Denies: cough, shortness of breath Cardiovascular: Denies: chest pain, palpitations Gastrointestinal: Reports: abdominal pain; Denies: diarrhea, nausea, vomiting Musculoskeletal: Denies: back pain, joint pain Skin: Denies: rash Neurological: Denies: headache, numbness Endocrine: Denies: increased thirst, increased urine Hematologic/Lymphatic: Denies: easy bruising All Other Systems: negative except mentioned in HPI Physical Exam Vital Signs Date Time Temp Pulse Resp B/P (MAP) Pulse Ox O2 Delivery O2 Flow Rate FiO2 12/19/18 22:18 98.2 95 18 144/106 (119) 100 Room Air vitals high blood pressure Sp02 EP Interpretation: reviewed, normal General Appearance: well appearing, no apparent distress, alert Head: normocephalic, atraumatic Eyes: bilateral eye PERRL, bilateral eye EOMI ENT: hearing grossly normal, normal pharynx Neck: full range of motion, supple, no meningismus Respiratory: chest non-tender, lungs clear, normal breath sounds Cardiovascular #1: regular rate, rhythm, no murmur Gastrointestinal: normal bowel sounds, non tender, no mass, no organomegaly, no bruit, non-distended Musculoskeletal: back normal, gait/station normal, normal range of motion Psychiatric: mood/affect normal Skin: warm/dry Medical Decision Making Diagnostic Impression: Primary Impression: Renal colic on left side ER Course Patient with flank pain. He probably passed a kidney stone. There is no evidence ureteral stone. He does have a nonobstructive stone in the left kidney. This is not the cause of the problem. He looks comfortable. We'll discharge home. CT/MRI/US Diagnostic Results CT/MRI/US Diagnostic Results : Imaging Test Ordered: CT abdomen and pelvis Impression read by radiologist. No ureteral stone. 5mm left kidney stone. Last Vital Signs Date Time Temp Pulse Resp B/P (MAP) Pulse Ox O2 Delivery O2 Flow Rate FiO2 12/19/18 22:33 98.2 89 18 144/106 100 Room Air Status: improved Disposition: HOME, SELF-CARE Condition: Stable Scripts Ibuprofen* (MOTRIN*) 600 Mg Tablet 600 MG ORAL THREE TIMES A DAY, #30 TAB 0 Refills Prov: Devin Farr MD 12/20/18 Additional Instructions: Increase fluids. Follow-up with your doctor in 7 days. Return if worse. Devin Farr MD Dec 19, 2018 22:42
[2018-12-19] MEDS ORDERED: Morphine Sulfate 4mg/ml Inj (IV USE ONLY) IVP ONE (22:45)
[2018-12-19] MEDS ORDERED: Ketorolac 30mg Inj IV ONE (22:45)
[2018-12-19 23:17] LABS: APPEARANCE,URINE CLEAR; BILIRUBIN, URINE NEGATIVE (NEGATIVE); COLOR,URINE PALE YELLOW; GLUCOSE, URINE (UA) NEGATIVE (NEGATIVE); KETONES,URINE NEGATIVE (NEGATIVE); LEUKOCYTE ESTERASE ,URINE NEGATIVE (NEGATIVE); NITRITE,URINE NEGATIVE (NEGATIVE); PH,URINE 7 (4.5-8.0); PROTEIN,URINE NEGATIVE (NEGATIVE); UROBILINOGEN,URINE NORMAL MG/DL (0.0-1.0)
[2018-12-20] MEDS ORDERED: IBUPROFEN600 MG ORAL (00:13)
[2018-12-20 00:15] VITALS: BP 133/82
[2018-12-20 00:40] VITALS: BP 133/82
--- NOTE | 2018-12-20 09:44 | Diagnostic Imaging Report ---
Indication: Abdominal pain Technique: Continuous helical transaxial imaging of the abdomen and pelvis was obtained from the lung bases to the pubic symphysis. No intravenous contrast was administered. Coronal 2-D reformats were also obtained. Automatic Exposure Control was utilized. Total Dose length Product (DLP): 1001.[address] Dose Index Volume (CTDIvol): 18.84 mGy Comparison: none Findings: The lung bases are clear. There is a 5 mm nonobstructive stone in the lower pole the left kidney. There is no hydronephrosis demonstrated. Gallbladder is unremarkable. Bowel gas pattern is nonobstructive. The appendix is normal. No free fluid or free air identified. Bladder is unremarkable. IMPRESSION: Nonobstructive stone in the left kidney. [facility] has communicated the preliminary results to the Emergency Department. Their findings are largely concordant with this report. The CT scanner at [facility] is accredited by the [employer] and the scans are performed using dose optimization techniques as appropriate to a performed exam including Automatic Exposure control.
== END 2018-12-20 00:40 | disposition home or self-care (01) ==
LOC: EMR 22:32
DX: N20.0 Calculus of kidney (principal); I10 Essential (primary) hypertension; J45.909 Unspecified asthma, uncomplicated
CPT/HCPCS: 74176; 81003; 96374; 96375; 99284; J1885; J2270; J2405

== ENCOUNTER 2019-06-16 22:06 | Emergency (ER) | payer MEDICAID ==
[~2019-06-16] VITALS: Ht 182.9 cm; Wt 113.4 kg
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
[2019-06-16 22:22] VITALS: BP 147/97
[2019-06-16] MEDS ORDERED: HYDROCODON-ACE1 EA15 ORAL (22:37)
[2019-06-16] MEDS ORDERED: IBUPROFEN600 MG ORAL (22:37)
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
[2019-06-16] MEDS ORDERED: HYDROmorphone 1mg/ml Carpuject IM ONE (22:45)
[2019-06-16 22:47] VITALS: BP 147/97
--- NOTE | 2019-06-16 22:49 | NUR ---
ER DISCHARGE NOTE: Patient is cleared to be discharged per ERMD, pt is aox4, on room air, with stable vital signs. pt was given dc and prescription instructions, pt was able to verbalize understanding, pt id band removed without complications. pt is able to ambulate with steady gait. pt took all belongings.
== END 2019-06-16 22:47 | disposition home or self-care (01) ==
LOC: EMR 22:30
DX: M54.5 Low back pain (principal); S39.92XS Unspecified injury of lower back, sequela; X58.XXXS Exposure to other specified factors, sequela; I10 Essential (primary) hypertension
CPT/HCPCS: 96372; J1170; Z7502; 99283

== ENCOUNTER 2019-10-05 03:53 | Emergency (ER) | payer MEDICAID ==
[~2019-10-05] VITALS: Ht 182.9 cm; Wt 113.4 kg
[~2019-10-05 03:53] MED LIST changes: +CEPHALEXIN500 MG ORAL; +HYDROCODON-ACE1 EA15 ORAL; +PHENAZOPYRIDIN200 MG ORAL
[2019-10-05 04:06] VITALS: BP 146/93
[2019-10-05] MEDS ORDERED: Ketorolac 30mg Inj IM ONE (04:15)
[2019-10-05] MEDS ORDERED: NAPROXEN500 M2 ORAL (04:15)
--- NOTE | 2019-10-05 04:19 | Emergency Room Report ---
History of Present Illness General Chief Complaint: Pain Source: Patient Present Illness HPI Disclaimer: Please note that this report is being documented using [employer] technology. This can lead to erroneous entry secondary to incorrect interpretation by the dictating instrument. HPI: 34-year-old male presents for evaluation of hip pain. Symptoms began 1 week ago. He noted pain that is aching quality and nonradiating in the right hip. It was worse with ambulation. No trauma reported. 2 days ago he started experiencing pain and tightness in his left hip. Again there was no trauma or injury reported. No prior history of injury. He denies pain radiating to his groin, testicular pain, urethral discharge, dysuria, hematuria, flank pain. He has chronic back pain that is unchanged. Denies any fevers, chills. Denies pain in any other joints. Denies rash. He was treated for urethritis 1 month ago and finished the entire course of antibiotics. Otherwise in his usual state of health and denies all other complaints at this time. He has been using Motrin with little improvement. States he is ambulating with a steady gait. PMH: Depression, asthma PSH: Denies Allergies: Denies Social Hx: Denies COVID-19 risk:Contact w/high r: No COVID-19 risk:Travel to affect: No Has patient experienced martinez: No Allergies: Coded Allergies: No Known Allergies (Unverified , 11/26/18) Nursing Documentation-PMH Hx Cardiac Problems: Yes - "Heart surgery as " Hx Hypertension: Yes Hx Asthma: Yes Hx COPD: No Hx Diabetes: No Hx Cancer: No Hx Gastrointestinal Problems: Yes - IBS Hx Dialysis: No Hx Neurological Problems: Yes - "Brain surgery as a " Hx Cerebrovascular Accident: No Hx Seizures: No Review of Systems All Other Systems: negative except mentioned in HPI Physical Exam Vital Signs Date Time Temp Pulse Resp B/P (MAP) Pulse Ox O2 Delivery O2 Flow Rate FiO2 10/05/19 03:59 98.4 86 16 146/93 (110) 96 Room Air General: Awake and alert, no acute distress HEENT: NC/AT. EOMI. Resp: Normal work of breathing Skin: Intact. No abrasions, laceration or rash over the exposed skin MSK: Normal tone and bulk. Moving all extremities. No obvious deformity. Ambulating with steady gait. Strength is 5/5 at the hips, knees bilaterally. Pelvis is stable on AP and lateral compression. There is tenderness with lateral compression on both hips. Joints are in anatomic position and stable. Neuro: Awake and alert. Mentating appropriately Medical Decision Making Diagnostic Impression: Primary Impression: Hip pain ER Course 34-year-old male presents for evaluation of bilateral hip pain. Differential includes was not limited to osteo-arthritis, rheumatoid arthritis, overuse injury, ligamentous injury or strain, labral tear, gout, pseudogout, inflammatory arthritis such as reactive arthritis. The patient was treated for urethritis 1 month ago however symptoms began 1 week ago. Still might be an inflammatory arthritis. No evidence of septic joint, dislocation, no trauma reported. He is well-appearing with a steady gait full strength and sensation. Do not believe he requires emergent labs or imaging at this time. Will prescribe the patient naproxen and referred to his PMD. He may require orthopedic surgery evaluation. Discussed reasons to return to the emergency department and things to discuss with his PMD. He understands and agrees with this treatment plan will be discharged home. Last Vital Signs Date Time Temp Pulse Resp B/P (MAP) Pulse Ox O2 Delivery O2 Flow Rate FiO2 10/05/19 04:06 98.4 86 16 146/93 96 Room Air Disposition: HOME, SELF-CARE Condition: Stable Scripts Naproxen* (NAPROXEN*) 500 Mg Tablet 500 MG ORAL TWICE A WEEK, #30 TAB 0 Refills Prov: Federico Esquivel MD 10/05/19 [facility] Open 24 hour /7 days a week by Appointment Only [address] [facility] [address] [facility] [id number] Patient Instructions: Hip Pain, Reactive Arthritis Additional Instructions: Follow-up with your primary care doctor next week to discuss emergency department visit. Take the new medications as prescribed. If you experience worsening pain, difficulty walking, rash, fevers or other changes in your health return to the emergency department for reevaluation. Wash your hands frequently, isolate yourself from others and follow all public health guidelines during this pandemic. Federico Esquivel MD Oct 05, 2019 04:19
== END 2019-10-05 04:40 | disposition home or self-care (01) ==
LOC: EMR 04:36
DX: M25.552 Pain in left hip (principal); M25.551 Pain in right hip; F32.9 Major depressive disorder, single episode, unspecified; I10 Essential (primary) hypertension
CPT/HCPCS: 96372; J1885; Z7502; 99283